=== PATIENT | female | born 1995 | race Caucasian/White ===

== ENCOUNTER 2017-12-10 22:15 | Emergency (ER) | payer OTHER ==
[~2017-12-10] VITALS: Ht 162.6 cm; Wt 50.0 kg
[2017-12-10] MEDS ORDERED: SODIUM CHLORIDE 0.9% 1,000ML IVBOLUS ONE (23:00)
[2017-12-10] MEDS ORDERED: SODIUM CHLORIDE FLUSH 10ML SYR IVF ONE (23:00)
[2017-12-10] MEDS ORDERED: KETOROLAC 30 MG/1 ML IVPush ONE (23:00)
[2017-12-10 23:43] LABS: BASOPHILS # (AUTO) 0.06 x10^3/uL (0-0.3); BASOPHILS % (AUTO) 1 % (0-1); EOSINOPHILS # (AUTO) 0.05 x10^3/uL (0-0.8); EOSINOPHILS % (AUTO) 1 % (1-7); LYMPHOCYTES % (AUTO) 24 % (22-44); MD NO; MEAN CORPUSCULAR HGB CONC 32.7 g/dL (32.4-35.8); MEAN CORPUSCULAR VOLUME 82.6 fL (80-100); MONOCYTES # (AUTO) 0.69 x10^3/uL (0-1.4); MONOCYTES % (AUTO) 7 % (2-9); NEUTROPHILS # (AUTO) 6.79 x10^3/uL (1.8-8.0); NEUTROPHILS % (AUTO) 68 % (42-75); PLATELET COUNT 362 x10^3/uL (130-400); RED BLOOD COUNT 4.84 x10^6/uL (3.82-5.3); RED CELL DISTRIBUTION WIDTH 14.1 % (9.6-15.2)
[2017-12-10 23:54] LABS: ALANINE AMINOTRANSFERASE 15 U/L (12-78); ALBUMIN 4.3 g/dL (3.4-5.0); ANION GAP 8 mmol/L (5-15); CALCIUM 9.7 mg/dL (8.5-10.1); CHLORIDE 108 mmol/L (98-107); CREATININE 0.74 mg/dL (0.55-1.02)
[2017-12-10 23:58] LABS: ALKALINE PHOSPHATASE 91 U/L (45-117); BILIRUBIN,TOTAL 0.6 mg/dL (0.2-1.0); TOTAL PROTEIN 7.9 g/dL (6.4-8.2)
[2017-12-10 23:59] LABS: CULTURE INDICATED? YES; MICROSCOPIC INDICATED
[2017-12-11] MEDS ORDERED: HYDROcodone/APAP 5/325 TABLET PO ONE (01:00)
[2017-12-11] MEDS ORDERED: HYDROcodone/APAP 5/325 TABLET ONE (01:06)
[2017-12-11 01:27] VITALS: BP 124/78
== END 2017-12-11 01:29 | disposition home or self-care (01) ==
LOC: ED 12-11 00:14
DX: K85.00 Idiopathic acute pancreatitis without necrosis or infection (principal)
CPT/HCPCS: 36415; 74018; 76700; 80053; 81001; 83690; 84703; 85025; 87086; 99285

== ENCOUNTER 2017-12-11 19:13 | Inpatient (IN) | payer OTHER ==
[~2017-12-11] VITALS: Ht 162.6 cm; Wt 49.3 kg
[2017-12-11] MEDS ORDERED: SODIUM CHLORIDE 0.9% 1,000ML IVBOLUS ONE (19:30)
[2017-12-11] MEDS ORDERED: SODIUM CHLORIDE FLUSH 10ML SYR IVF ONE (19:30)
[2017-12-11] MEDS ORDERED: ONDANSETRON 2MG/ML, 2ML IVPush ONE (19:30)
[2017-12-11 19:58] LABS: ALBUMIN 4.1 g/dL (3.4-5.0); ANION GAP 5 mmol/L (5-15); CALCIUM 9.6 mg/dL (8.5-10.1); CHLORIDE 109 mmol/L (98-107)
[2017-12-11 20:00] LABS: BASOPHILS # (AUTO) 0.05 x10^3/uL (0-0.3); BASOPHILS % (AUTO) 1 % (0-1); EOSINOPHILS # (AUTO) 0.09 x10^3/uL (0-0.8); EOSINOPHILS % (AUTO) 1 % (1-7); LYMPHOCYTES # (AUTO) 2.01 x10^3/uL (1-6.1); LYMPHOCYTES % (AUTO) 26 % (22-44); MD NO; MEAN CORPUSCULAR HEMOGLOBIN 27.2 pg (27.0-34.8); MEAN CORPUSCULAR HGB CONC 32.6 g/dL (32.4-35.8); MEAN CORPUSCULAR VOLUME 83.3 fL (80-100); MEAN PLATELET VOLUME 9.4 fL (7.4-10.4); MONOCYTES # (AUTO) 0.64 x10^3/uL (0-1.4); MONOCYTES % (AUTO) 8 % (2-9); NEUTROPHILS % (AUTO) 65 % (42-75); PLATELET COUNT 348 x10^3/uL (130-400); RED BLOOD COUNT 4.87 x10^6/uL (3.82-5.3); RED CELL DISTRIBUTION WIDTH 14.7 % (9.6-15.2)
[2017-12-11 20:01] LABS: ALANINE AMINOTRANSFERASE 14 U/L (12-78); ALKALINE PHOSPHATASE 88 U/L (45-117); BILIRUBIN,TOTAL 0.6 mg/dL (0.2-1.0); CREATININE 0.85 mg/dL (0.55-1.02); TOTAL PROTEIN 7.7 g/dL (6.4-8.2)
[2017-12-11 20:28] LABS: CULTURE INDICATED? YES; MICROSCOPIC INDICATED
[2017-12-11] MEDS ORDERED: ONDANSETRON 2MG/ML, 2ML ONE (21:47)
[2017-12-11] MEDS ORDERED: MORPHINE SULFATE 4 MG/ML, 1ML ONE (21:47)
[2017-12-11] MEDS: MORPHINE SULFATE 4 MG/ML, 1ML IVPush PRN (22:37)
[2017-12-12] MEDS ORDERED: hydrALAzine 20 MG/ML, 1ML IVPush PRN (00:30)
[2017-12-12] MEDS ORDERED: OXYcodone IR 5MG TABLET PO PRN (00:30)
[2017-12-12] MEDS ORDERED: BISACODYL 10 MG SUPP PR PRN (00:30)
[2017-12-12] MEDS ORDERED: ACETAMINOPHEN 325 MG TABLET PO PRN (00:30)
[2017-12-12] MEDS ORDERED: POLYETHYLENE GLYCOL 17 GM PACKET PO PRN (00:30)
[2017-12-12] MEDS ORDERED: MORPHINE SULFATE 4 MG/ML, 1ML ONE ×2 (00:40→06:53)
[2017-12-12] MEDS ORDERED: HEPARIN 5,000 UNITS/ML, 1ML ONE (00:40)
[2017-12-12] MEDS: MORPHINE SULFATE 4 MG/ML, 1ML IVPush PRN (00:45)
[2017-12-12] MEDS: SODIUM CHLORIDE 0.9% 1,000 ML IV SCH ×4 (00:47→23:40)
[2017-12-12] MEDS: HEPARIN 5,000 UNITS/ML, 1ML SQ SCH ×3 (00:47→20:58)
[2017-12-12 00:56] LABS: FREE T4 (FREE THYROXINE) 0.95 ng/dL (0.76-1.46); THYROID STIMULATING HORMONE 1.1 mIU/L (0.358-3.740)
[2017-12-12] MEDS: morphine SULFATE 10 MG/ML, 1ML IVPush PRN ×5 (07:00→21:02)
[2017-12-12 08:00] LABS: ALANINE AMINOTRANSFERASE 11 U/L (12-78); ALBUMIN 3.1 g/dL (3.4-5.0); CALCIUM 8.3 mg/dL (8.5-10.1); CHOLESTEROL, TOTAL 100 mg/dL (140-239)
[2017-12-12 08:03] LABS: ALKALINE PHOSPHATASE 72 U/L (45-117); BILIRUBIN,TOTAL 0.5 mg/dL (0.2-1.0); CHOL/HDL RATIO 1.9; CREATININE 0.68 mg/dL (0.55-1.02); HDL CHOL % 54 % (28-40); HDL CHOLESTEROL (DIRECT) 54 mg/dL (40-60); LDL CHOLESTEROL,CALCULATED 32 mg/dL (54-169); LDL/HDL RATIO 0.6 (0.5-3.0); TRIGLYCERIDES 68 mg/dL (50-200); VLDL CHOLESTEROL 14 mg/dL (0-25)
[2017-12-12 08:06] LABS: ANION GAP 8 mmol/L (5-15); CHLORIDE 110 mmol/L (98-107)
[2017-12-12 08:27] LABS: BASOPHILS # (AUTO) 0.05 x10^3/uL (0-0.3); BASOPHILS % (AUTO) 1 % (0-1); EOSINOPHILS # (AUTO) 0.09 x10^3/uL (0-0.8); EOSINOPHILS % (AUTO) 2 % (1-7); LYMPHOCYTES # (AUTO) 2.58 x10^3/uL (1-6.1); LYMPHOCYTES % (AUTO) 40 % (22-44); MD NO; MEAN CORPUSCULAR HEMOGLOBIN 27.2 pg (27.0-34.8); MEAN CORPUSCULAR VOLUME 82.5 fL (80-100); MEAN PLATELET VOLUME 9.9 fL (7.4-10.4); MONOCYTES # (AUTO) 0.53 x10^3/uL (0-1.4); MONOCYTES % (AUTO) 8 % (2-9); NEUTROPHILS # (AUTO) 3.16 x10^3/uL (1.8-8.0); NEUTROPHILS % (AUTO) 49 % (42-75); PLATELET COUNT 251 x10^3/uL (130-400); RED BLOOD COUNT 3.95 x10^6/uL (3.82-5.3); RED CELL DISTRIBUTION WIDTH 14.2 % (9.6-15.2)
[2017-12-12] MEDS: SENNA/DOCUSATE TABLET PO SCH (09:00)
[2017-12-12 11:45] VITALS: BP 91/50
[2017-12-12 13:56] VITALS: BP 87/44
[2017-12-12 19:19] VITALS: BP 96/59
[2017-12-13 00:45] VITALS: BP_SYST 98; BP_SYST 99; BP_DIAS 59; BP_DIAS 61
[2017-12-13] MEDS: ONDANSETRON 2MG/ML, 2ML IVPush PRN ×2 (00:57→05:25)
[2017-12-13] MEDS: morphine SULFATE 10 MG/ML, 1ML IVPush PRN ×2 (00:58→05:25)
[2017-12-13] MEDS: HEPARIN 5,000 UNITS/ML, 1ML SQ SCH ×3 (05:25→20:52)
[2017-12-13 05:55] LABS: BASOPHILS # (AUTO) 0.04 x10^3/uL (0-0.3); BASOPHILS % (AUTO) 1 % (0-1); EOSINOPHILS # (AUTO) 0.02 x10^3/uL (0-0.8); EOSINOPHILS % (AUTO) 0 % (1-7); LYMPHOCYTES # (AUTO) 1.25 x10^3/uL (1-6.1); LYMPHOCYTES % (AUTO) 19 % (22-44); MD NO; MEAN CORPUSCULAR HEMOGLOBIN 27.3 pg (27.0-34.8); MEAN CORPUSCULAR VOLUME 82.6 fL (80-100); MEAN PLATELET VOLUME 10.1 fL (7.4-10.4); MONOCYTES # (AUTO) 0.48 x10^3/uL (0-1.4); MONOCYTES % (AUTO) 8 % (2-9); NEUTROPHILS # (AUTO) 4.63 x10^3/uL (1.8-8.0); NEUTROPHILS % (AUTO) 72 % (42-75); PLATELET COUNT 222 x10^3/uL (130-400); RED CELL DISTRIBUTION WIDTH 13.8 % (9.6-15.2)
[2017-12-13 06:07] LABS: ALBUMIN 2.9 g/dL (3.4-5.0); ANION GAP 11 mmol/L (5-15); CALCIUM 8.5 mg/dL (8.5-10.1); CHLORIDE 109 mmol/L (98-107)
[2017-12-13 06:11] LABS: ALANINE AMINOTRANSFERASE 12 U/L (12-78); ALKALINE PHOSPHATASE 66 U/L (45-117); BILIRUBIN,TOTAL 0.8 mg/dL (0.2-1.0); TOTAL PROTEIN 5.5 g/dL (6.4-8.2)
[2017-12-13] MEDS: SODIUM CHLORIDE 0.9% 1,000 ML IV SCH (08:00)
[2017-12-13 08:06] VITALS: BP 90/54
[2017-12-13] MEDS: SENNA/DOCUSATE TABLET PO SCH (08:32)
[2017-12-13 14:05] VITALS: BP 88/45
[2017-12-13 19:06] VITALS: BP_SYST 87; BP_SYST 89; BP_DIAS 54; BP_DIAS 56
[2017-12-14 00:26] VITALS: BP 99/62
[2017-12-14] MEDS: HEPARIN 5,000 UNITS/ML, 1ML SQ SCH ×3 (05:02→20:47)
[2017-12-14 07:20] VITALS: BP 94/57
[2017-12-14] MEDS: SENNA/DOCUSATE TABLET PO SCH (09:00)
[2017-12-14] MEDS: morphine SULFATE 10 MG/ML, 1ML IVPush PRN ×5 (10:14→22:42)
[2017-12-14] MEDS: POTASSIUM CHLORIDE 20 MEQ in LACTATED RINGERS 1,000 ML IV SCH ×2 (10:30→15:33)
[2017-12-14 13:14] VITALS: BP 92/56
[2017-12-14] MEDS: PROMETHAZINE 25 MG/ML, 1ML IM PRN ×2 (16:35→22:42)
[2017-12-14 18:51] VITALS: BP 114/74
[2017-12-15 00:18] VITALS: BP 94/58
[2017-12-15] MEDS: POTASSIUM CHLORIDE 20 MEQ in LACTATED RINGERS 1,000 ML IV SCH ×4 (00:59→21:00)
[2017-12-15 04:59] LABS: BASOPHILS # (AUTO) 0.04 x10^3/uL (0-0.3); BASOPHILS % (AUTO) 1 % (0-1); EOSINOPHILS # (AUTO) 0.16 x10^3/uL (0-0.8); EOSINOPHILS % (AUTO) 3 % (1-7); LYMPHOCYTES # (AUTO) 2.06 x10^3/uL (1-6.1); LYMPHOCYTES % (AUTO) 39 % (22-44); MD NO; MEAN CORPUSCULAR HEMOGLOBIN 27.1 pg (27.0-34.8); MEAN CORPUSCULAR HGB CONC 32.8 g/dL (32.4-35.8); MEAN CORPUSCULAR VOLUME 82.7 fL (80-100); MEAN PLATELET VOLUME 9.3 fL (7.4-10.4); MONOCYTES # (AUTO) 0.69 x10^3/uL (0-1.4); MONOCYTES % (AUTO) 13 % (2-9); NEUTROPHILS # (AUTO) 2.32 x10^3/uL (1.8-8.0); NEUTROPHILS % (AUTO) 44 % (42-75); PLATELET COUNT 251 x10^3/uL (130-400); RED BLOOD COUNT 4.08 x10^6/uL (3.82-5.3); RED CELL DISTRIBUTION WIDTH 14.1 % (9.6-15.2)
[2017-12-15] MEDS: HEPARIN 5,000 UNITS/ML, 1ML SQ SCH ×3 (05:00→21:01)
[2017-12-15] MEDS: morphine SULFATE 10 MG/ML, 1ML IVPush PRN ×4 (05:00→21:01)
[2017-12-15 05:04] LABS: CHLORIDE 109 mmol/L (98-107)
[2017-12-15 05:07] LABS: ANION GAP 8 mmol/L (5-15); CALCIUM 8.7 mg/dL (8.5-10.1); CREATININE 0.53 mg/dL (0.55-1.02)
[2017-12-15 06:52] VITALS: BP 135/75
[2017-12-15 07:53] VITALS: BP 92/58
[2017-12-15] MEDS: SENNA/DOCUSATE TABLET PO SCH (09:00)
[2017-12-15 14:20] VITALS: BP 110/70
[2017-12-15] MEDS: PROMETHAZINE 25 MG/ML, 1ML IM PRN (17:34)
[2017-12-15 19:19] VITALS: BP 112/88
[2017-12-16 00:22] VITALS: BP 107/70
[2017-12-16] MEDS: morphine SULFATE 10 MG/ML, 1ML IVPush PRN ×5 (01:58→20:25)
[2017-12-16] MEDS: POTASSIUM CHLORIDE 20 MEQ in LACTATED RINGERS 1,000 ML IV SCH ×4 (01:58→16:37)
[2017-12-16] MEDS: HEPARIN 5,000 UNITS/ML, 1ML SQ SCH ×3 (05:54→20:26)
[2017-12-16 06:00] LABS: BASOPHILS # (AUTO) 0.04 x10^3/uL (0-0.3); BASOPHILS % (AUTO) 1 % (0-1); EOSINOPHILS # (AUTO) 0.06 x10^3/uL (0-0.8); EOSINOPHILS % (AUTO) 1 % (1-7); LYMPHOCYTES # (AUTO) 1.72 x10^3/uL (1-6.1); LYMPHOCYTES % (AUTO) 36 % (22-44); MD NO; MEAN CORPUSCULAR HEMOGLOBIN 27.1 pg (27.0-34.8); MEAN CORPUSCULAR HGB CONC 32.8 g/dL (32.4-35.8); MEAN CORPUSCULAR VOLUME 82.4 fL (80-100); MEAN PLATELET VOLUME 9.4 fL (7.4-10.4); MONOCYTES # (AUTO) 0.45 x10^3/uL (0-1.4); MONOCYTES % (AUTO) 10 % (2-9); NEUTROPHILS # (AUTO) 2.51 x10^3/uL (1.8-8.0); NEUTROPHILS % (AUTO) 53 % (42-75); PLATELET COUNT 221 x10^3/uL (130-400); RED BLOOD COUNT 4.14 x10^6/uL (3.82-5.3); RED CELL DISTRIBUTION WIDTH 14.3 % (9.6-15.2)
[2017-12-16 06:12] LABS: ANION GAP 11 mmol/L (5-15); CALCIUM 8.9 mg/dL (8.5-10.1); CHLORIDE 104 mmol/L (98-107); CREATININE 0.43 mg/dL (0.55-1.02)
[2017-12-16 06:50] VITALS: BP 103/68
[2017-12-16] MEDS: SENNA/DOCUSATE TABLET PO SCH (09:00)
[2017-12-16] MEDS: NICOTINE 7 MG/24 HR PATCH.TD24 TD SCH (09:43)
[2017-12-16 14:59] VITALS: BP 102/67
[2017-12-16] MEDS: PROMETHAZINE 25 MG/ML, 1ML IM PRN ×2 (16:22→20:26)
[2017-12-16 19:25] VITALS: BP 100/66
[2017-12-17 00:25] VITALS: BP 109/73
[2017-12-17] MEDS: POTASSIUM CHLORIDE 20 MEQ in LACTATED RINGERS 1,000 ML IV SCH ×2 (00:37→08:28)
[2017-12-17] MEDS: morphine SULFATE 10 MG/ML, 1ML IVPush PRN (00:37)
[2017-12-17 05:47] LABS: CHLORIDE 106 mmol/L (98-107)
[2017-12-17] MEDS: HEPARIN 5,000 UNITS/ML, 1ML SQ SCH ×3 (05:50→21:09)
[2017-12-17 05:54] LABS: ANION GAP 7 mmol/L (5-15); CALCIUM 9.2 mg/dL (8.5-10.1); CREATININE 0.48 mg/dL (0.55-1.02)
[2017-12-17 07:08] VITALS: BP 91/50
[2017-12-17] MEDS: SENNA/DOCUSATE TABLET PO SCH ×2 (08:28→09:00)
[2017-12-17] MEDS: NICOTINE 7 MG/24 HR PATCH.TD24 TD SCH (08:29)
[2017-12-17] MEDS ORDERED: MORPHINE SULFATE 4 MG/ML, 1ML IVPush PRN (10:30)
[2017-12-17] MEDS: LACTATED RINGERS 1,000 ML IV SCH ×2 (10:39→19:30)
[2017-12-17 13:27] VITALS: BP 99/67
[2017-12-17 20:00] VITALS: BP 103/66
[2017-12-18 02:00] VITALS: BP 109/70
[2017-12-18 05:49] LABS: ANION GAP 9 mmol/L (5-15); CHLORIDE 107 mmol/L (98-107); CREATININE 0.57 mg/dL (0.55-1.02)
[2017-12-18] MEDS: HEPARIN 5,000 UNITS/ML, 1ML SQ SCH ×2 (06:20→12:26)
[2017-12-18] MEDS: LACTATED RINGERS 1,000 ML IV SCH (08:21)
[2017-12-18] MEDS: NICOTINE 7 MG/24 HR PATCH.TD24 TD SCH (08:21)
[2017-12-18] MEDS: SENNA/DOCUSATE TABLET PO SCH (08:24)
[2017-12-18 08:37] VITALS: BP 96/61
[2017-12-18 14:12] VITALS: BP 94/60
== END 2017-12-18 17:50 | disposition home or self-care (01) | DRG 440 ==
LOC: ED 21:50 → EDIP 22:54 → 4EST 12-12 10:46
PROVIDERS: ADMIT Internal Medicine; ATTEND Internal Medicine
DX: K85.90 Acute pancreatitis without necrosis or infection, unspecified (principal); I45.81 Long QT syndrome; D64.9 Anemia, unspecified; I10 Essential (primary) hypertension; Z72.0 Tobacco use; Z87.442 Personal history of urinary calculi
CPT/HCPCS: 36415; 74181; 80048; 80053; 80061; 81001; 83690; 83735; 84439; 84443; 85025; 87086; 99285; J1644; J2405; J2550; J3480; J2270; J7030; J7120

== ENCOUNTER 2018-04-10 14:48 | Emergency (ER) | payer OTHER ==
[~2018-04-10] VITALS: Ht 162.6 cm; Wt 44.7 kg
[2018-04-10] MEDS ORDERED: METOCLOPRAMIDE 5 MG/ML, 2ML ONE (15:23)
[2018-04-10] MEDS ORDERED: MORPHINE SULFATE 4 MG/ML, 1ML ONE (15:23)
[2018-04-10] MEDS ORDERED: SODIUM CHLORIDE FLUSH 10ML SYR IVF ONE (15:30)
[2018-04-10] MEDS ORDERED: METOCLOPRAMIDE 5 MG/ML, 2ML IVPush ONE (15:30)
[2018-04-10] MEDS ORDERED: MORPHINE SULFATE 4 MG/ML, 1ML IVPush PRN (15:30)
[2018-04-10 15:49] LABS: BASOPHILS # (AUTO) 0.02 x10^3/uL (0-0.1); BASOPHILS % (AUTO) 0 % (0-1); EOSINOPHILS # (AUTO) 0.03 x10^3/uL (0-0.4); EOSINOPHILS % (AUTO) 0 % (1-7); LYMPHOCYTES # (AUTO) 1.33 x10^3/uL (1-3.4); LYMPHOCYTES % (AUTO) 14 % (22-44); MD NO; MEAN CORPUSCULAR HEMOGLOBIN 27.3 pg (27.0-34.8); MEAN CORPUSCULAR HGB CONC 32.6 g/dL (32.4-35.8); MEAN CORPUSCULAR VOLUME 83.9 fL (80-100); MEAN PLATELET VOLUME 9.3 fL (7.4-10.4); MONOCYTES # (AUTO) 0.48 x10^3/uL (0.2-0.8); MONOCYTES % (AUTO) 5 % (2-9); NEUTROPHILS # (AUTO) 7.86 x10^3/uL (1.8-6.8); NEUTROPHILS % (AUTO) 81 % (42-75); PLATELET COUNT 274 x10^3/uL (130-400); RED BLOOD COUNT 4.49 x10^6/uL (3.82-5.3); RED CELL DISTRIBUTION WIDTH 14.7 % (9.6-15.2)
[2018-04-10 15:59] LABS: ALANINE AMINOTRANSFERASE 15 U/L (12-78); ALBUMIN 4.1 g/dL (3.4-5.0); ANION GAP 8 mmol/L (5-15); CALCIUM 9.3 mg/dL (8.5-10.1); CHLORIDE 110 mmol/L (98-107); CREATININE 0.79 mg/dL (0.55-1.02)
[2018-04-10 16:03] LABS: ALKALINE PHOSPHATASE 75 U/L (45-117); TOTAL PROTEIN 7.2 g/dL (6.4-8.2)
[2018-04-10 16:07] LABS: BILIRUBIN,TOTAL 0.6 mg/dL (0.2-1.0)
[2018-04-10 17:25] LABS: CULTURE INDICATED? YES; MICROSCOPIC INDICATED
[2018-04-10 18:34] VITALS: BP 120/78
== END 2018-04-10 18:36 | disposition home or self-care (01) ==
LOC: ED 17:31
DX: N30.90 Cystitis, unspecified without hematuria (principal); N94.6 Dysmenorrhea, unspecified; I45.81 Long QT syndrome
CPT/HCPCS: 36415; 76830; 80053; 81001; 83690; 84703; 85025; 87086; 96374; 96375; 99285; J2765

== ENCOUNTER 2018-07-31 22:03 | Emergency (ER) | payer OTHER ==
[~2018-07-31] VITALS: Ht 162.6 cm; Wt 49.0 kg
[2018-07-31 23:42] LABS: BASOPHILS # (AUTO) 0.05 x10^3/uL (0-0.1); BASOPHILS % (AUTO) 0 % (0-1); EOSINOPHILS # (AUTO) 0.01 x10^3/uL (0-0.4); EOSINOPHILS % (AUTO) 0 % (1-7); LYMPHOCYTES # (AUTO) 1.59 x10^3/uL (1-3.4); LYMPHOCYTES % (AUTO) 11 % (22-44); MD NO; MEAN CORPUSCULAR HEMOGLOBIN 27.1 pg (27.0-34.8); MEAN CORPUSCULAR HGB CONC 32.4 g/dL (32.4-35.8); MEAN CORPUSCULAR VOLUME 83.5 fL (80-100); MEAN PLATELET VOLUME 9.8 fL (7.4-10.4); MONOCYTES # (AUTO) 0.77 x10^3/uL (0.2-0.8); MONOCYTES % (AUTO) 5 % (2-9); NEUTROPHILS # (AUTO) 11.81 x10^3/uL (1.8-6.8); NEUTROPHILS % (AUTO) 83 % (42-75); PLATELET COUNT 297 x10^3/uL (130-400); RED BLOOD COUNT 4.62 x10^6/uL (3.82-5.3); RED CELL DISTRIBUTION WIDTH 14.4 % (9.6-15.2)
[2018-07-31 23:52] LABS: ALBUMIN 4.1 g/dL (3.4-5.0); ANION GAP 9 mmol/L (5-15); CALCIUM 8.8 mg/dL (8.5-10.1); CHLORIDE 107 mmol/L (98-107); CREATININE 0.64 mg/dL (0.55-1.02)
[2018-08-01] MEDS ORDERED: ACETAMINOPHEN 500 MG TABLET PO ONE
[2018-08-01] MEDS ORDERED: PROMETHAZINE 25 MG/ML, 1ML IM ONE
[2018-08-01 00:05] LABS: HCG UR SG 1.018 (1.003-1.030); MICROSCOPIC AUTO
[2018-08-01 00:06] LABS: CULTURE INDICATED? YES
[2018-08-01] MEDS ORDERED: ACETAMINOPHEN 500 MG TABLET ONE (00:19)
[2018-08-01] MEDS ORDERED: PROMETHAZINE 25 MG/ML, 1ML ONE (00:19)
[2018-08-01 00:25] VITALS: BP 105/64
== END 2018-08-01 01:11 | disposition home or self-care (01) ==
LOC: ED 08-01 00:16
DX: N30.90 Cystitis, unspecified without hematuria (principal); I45.81 Long QT syndrome; R10.30 Lower abdominal pain, unspecified; R11.2 Nausea with vomiting, unspecified; R19.7 Diarrhea, unspecified; Z87.442 Personal history of urinary calculi
CPT/HCPCS: 36415; 80048; 81001; 81025; 82040; 85025; 87086; 96372; 99284; J2550